=== PATIENT | male | born 1965 | race Caucasian/White ===

== ENCOUNTER 2023-01-18 10:35 | Emergency (ER) | payer OTHER ==
[~2023-01-18] VITALS: Ht 177.8 cm; Wt 96.6 kg
[~2023-01-18 10:35] MED LIST: AZIT250 PO; OXYACE5T PO; [UNRECOGNIZED DRUG - OTHER]
[2023-01-18 10:41] VITALS: BP 165/97
[2023-01-18] MEDS ORDERED: BACTRIM DS TAB1 EAC1 PO (12:03)
[2023-01-18] MEDS ORDERED: CEPH500 PO (12:03)
== END 2023-01-18 12:46 | disposition home or self-care (01) ==
LOC: ER 10:35
DX: L02.414 Cutaneous abscess of left upper limb (principal); L03.114 Cellulitis of left upper limb; I10 Essential (primary) hypertension; Z88.0 Allergy status to penicillin
CPT/HCPCS: 10060; 99283-25; A9270

== ENCOUNTER → 2023-06-29 | Outpatient (CLI) | payer SELFPAY ==
[~2023-06-29] MED LIST changes: +BACTRIM DS TAB1 EAC1 PO; +CEPH500 PO
== END | disposition home or self-care (01) ==
LOC: LAB SHORT 06-19 15:00 → LAB 15:00 → LAB SHORT 15:00
DX: L08.9 Local infection of the skin and subcutaneous tissue, unspecified (principal)
CPT/HCPCS: 87070; 87077; 87147; 87186; 87205